=== PATIENT | female | born 1950 | race Caucasian/White ===

== ENCOUNTER 2021-06-21 09:28 | Day surgery (SDC) | payer MEDICARE, OTHER ==
[~2021-06-21 09:28] MED LIST: Lactated Ringers 1,000 ML IV SCH
[2021-06-21] MEDS ORDERED: Propofol 200 MG/20 ML SDV ONE ×2 (11:03→11:14)
[2021-06-21] MEDS ORDERED: fentaNYL 100 MCG/2 ML SDV ONE (11:03)
[2021-06-21] MEDS ORDERED: Ondansetron 4 MG/2 ML SDV ONE (11:04)
[2021-06-21 12:12] VITALS: BP 148/72; PULSE 63
--- NOTE | 2021-06-21 13:16 | OR ---
PREOPERATIVE DIAGNOSES: History of colonic polyps and family history of colon cancer. POSTOPERATIVE DIAGNOSES: History of colonic polyps and family history of colon cancer. PROCEDURE PERFORMED: Colonoscopy with polypectomy. COMPLICATIONS: None. ESTIMATED BLOOD LOSS: 5 mL. PROCEDURE IN DETAIL: This was done in the endoscopy suite. Sedation was given per Anesthesia. She was placed in left lateral position. First, a rectal exam was done and was normal. Scope was introduced into the rectum and slowly advanced through the rectum, sigmoid, descending, transverse, and ascending colon until the cecum was reached. Upon reaching the cecum, scope was slowly withdrawn looking at all mucosal surfaces on the way out. No mucosal abnormalities, lesions, or polyps were noted except for small polyps at 100 cm, 2 of them at 45 cm and 1 of them at 35 cm. These were all removed by hot loop forceps. Remainder of the exam was normal. FINAL DIAGNOSIS: Polyps at 100; 2 at 45 and 1 at 35 cm. Final pathology pending. BKD: 06/21/2021 11:53:40 MODL: 06/21/2021 12:06:19 /[id number]
== END 2021-06-21 13:26 | disposition home or self-care (01) ==
LOC: VM.SDS 09:28
PROVIDERS: ATTEND Surgery
DX: Z12.11 Encounter for screening for malignant neoplasm of colon (principal); D12.6 Benign neoplasm of colon, unspecified; I10 Essential (primary) hypertension; E78.5 Hyperlipidemia, unspecified; E66.01 Morbid (severe) obesity due to excess calories; Z80.0 Family history of malignant neoplasm of digestive organs; Z98.890 Other specified postprocedural states; Z88.5 Allergy status to narcotic agent; Z88.2 Allergy status to sulfonamides; Z88.8 Allergy status to other drugs, medicaments and biological substances
CPT/HCPCS: 00812; 88305; J2405; J2704; J3010; J7120